=== PATIENT | female | born 1970 | race Two or more races ===

== ENCOUNTER 2024-07-04 19:13 | Emergency (ER) | payer MEDICAID, SELFPAY ==
[2024-07-04 19:58] VITALS: BP 136/76; PULSE 56; RESP 18; TEMP 36.7; O2SAT 98; BMI 50.3
--- NOTE | 2024-07-04 20:03 | XR_ITS ---
Examination: CT brain head without contrast. 2-D sagittal coronal reconstructions Date and time of exam:July 04, 2024 2128 hrs. Indications: Onset right-sided body numbness today CTDI: vol (mGy):49.1 DLP: (mGycm):896 Technique: Multiple CT axial sections of the brain have been obtained, 5 mm slice thickness. Contrast has not been administered. 2-D sagittal, coronal reconstructions have been obtained Low dose protocols were performed. One or more of the following dose reduction techniques were used; automated exposure control, adjustment of the mA and/or KV according to patient size, use of iterative reconstruction technique. Findings: No significant ventricular enlargement. 7 mm focus of calcification periphery of the right cerebellar hemisphere image 29 Intra-axial or extra-axial hemorrhage density is not seen. No mass effect or midline shift Basal cisterns are not remarkable. Fourth ventricle is midline. Cranial vault intact. Impression: Negative for acute hemorrhage, mass effect or midline shift As clinically warranted, brain MRI follow-up would best assess for demyelinating disease, acute ischemic change
--- NOTE | 2024-07-04 20:03 | XR_ITS ---
Examination: AP chest single view Technique: Upright AP chest single view Exam date and time: July 04, 20242022 hrs. Indications: Onset chest pain today. Findings: Mild enlargement cardiac contour Ectatic thoracic aorta. No pneumonia or pulmonary edema Impression: No pneumonia or pulmonary edema
--- NOTE | 2024-07-04 20:03 | EKG_ITS ---
[facility] Test Date: 2024-07-04 Pat Name: REILLY FULTON Department: Room: - Gender: Female Utility Engineer: : 1970 Requested By: Luis Reese Order Number: [id number] Reading MD: Luis Reese Measurements Intervals [place] Rate: 59 P: 40 IN: 181 QRS: -24 QRSD: 103 T: 24 QT: 332 QTc: 330 Interpretive Statements SINUS BRADYCARDIA WITH OCCASIONAL SUPRAVENTRICULAR PREMATURE COMPLEXES LOW QRS VOLTAGE IN PRECORDIAL LEADS [QRS DEFLECTION < 1.0 mV IN CHEST LEADS] VOLTAGE CRITERIA FOR LVH [MEETS CRITERIA IN ONE OF: R(aVL), S(V1), R(V5), R(V5/V6)+S(V1)] POSSIBLE ANTERIOR MYOCARDIAL INFARCTION , PROBABLY OLD [30 ms Q WAVE IN V3/V4, OR R < 0.2 mV IN V4] Compared to ECG 05/30/2020 12:22:24 Myocardial infarct finding now present /store/S0/[id number]/ecg/[id number].pdf
--- NOTE | 2024-07-04 20:05 | EDNOTE_ITS ---
<Statement entered by Adriane Jones MD - 07/15/24 17:38> As co-signing physician, I was present and available for consult prn. I concur with the plan and care as documented by the midlevel provider. ED General RME/HPI General Chief complaint: General Adult/Misc Complain Stated complaint: RIGHT SIDE BODY NUMBNESS Time Seen by Provider: 07/04/24 19:59 Arrival date/time: 07/04/24 19:13 RME / HPI RME / HPI narrative: 54-year-old female patient with significant history of hypertension, diabetes mellitus, came in for evaluation regarding right-sided numbness, started early this morning, associated with headache severity mild. Patient denies any slurring of speech denies any upper or lower extremity weakness patient is ambulatory. Denies any fever denies any other complaint except for right-sided chest discomfort also. Denies any cough no medications taken prior to arrival. Related Data Home Medications ?Medication ?Instructions ?Recorded ?Confirmed amiodarone 200 mg tablet 200 mg PO QDAY 04/07/20 07/07/20 aspirin 81 mg tablet,delayed 81 mg PO QDAY 04/07/20 07/06/20 release glimepiride 4 mg tablet 4 mg PO BID 04/07/20 07/06/20 metformin 1,000 mg tablet 1,000 mg PO BID 04/07/20 07/06/20 metoprolol tartrate 25 mg tablet 25 mg PO QDAY 04/07/20 07/07/20 pioglitazone 45 mg tablet 45 mg PO QDAY 05/30/20 07/06/20 Previous Rx's ?Medication ?Instructions ?Recorded docusate sodium 100 mg capsule 100 mg PO BID #60 caps 07/07/20 (Colace) hydrocodone 5 mg-acetaminophen 325 1 tab PO Q6H PRN pain (scale score 07/07/20 mg tablet 7-10) #20 tabs ibuprofen 600 mg tablet 600 mg PO Q8H PRN pain (scale 07/07/20 score 4-6) #14 tabs Allergies Allergy/AdvReac Type Severity Reaction Status Date / Time No Known Allergies Allergy Verified 07/04/24 19:17 Review of Systems Review of Systems Narrative Review of Systems: Review of system reviewed and within normal limits except mentioned in HPI ED Exam Narrative Physical exam: VITAL SIGNS: Reviewed. GENERAL APPEARANCE: Alert and interactive, follows commands, no acute distress, HEAD AND FACE: Non-traumatic. ENT: PERRL, pink conjunctivitis, eyelid no trauma, Mucous membrane moist. NECK: Supple, nontender, no nuchal rigidity. CHEST: No tenderness, no crepitus, no paradoxical movement, no retractions. LUNGS: Clear, well ventilated, symmetric, no rales, no wheezing, no ronchi, no stridor, good breath sounds bilaterally. HEART: Regular rate, regular rhythm, no murmur, no gallops. ABDOMEN: Soft, positive bowel sounds, nondistended, no guarding, nontender, no rebound, no masses, RECTAL: Deferred. GENITAL: Deferred. NEUROLOGICAL: Gross motor function intact sensory function intact, Appropriate for age. MUSCULOSKELETAL: low back nontender, full range of motion. EXTREMITIES: Nontender, full range of motion. SKIN: Color pink, dry, no rash, no lacerations, no abrasions, no contusions. LYMPHATICS: Deferred. Course Quality Measures none Orders Category Date Time Status EKG (ED ONLY) *Do not use* NOW Care 07/04/24 20:[address] head/brain wo con Stat Exams 07/04/24 20:03 Completed EKG (ED Only) Stat Exams 07/04/24 20:03 Draft XR chest 1V Stat Exams 07/04/24 20:03 Completed B-Type Natriuretic Peptide Stat Lab 07/04/24 20:20 Completed CBC Stat Lab 07/04/24 20:20 Completed Comprehensive Metabolic Panel Stat Lab 07/04/24 20:20 Completed Partial Thromboplastin Time Stat Lab 07/04/24 20:20 Completed Prothrombin Time with INR Stat Lab 07/04/24 20:20 Completed Troponin I Stat Lab 07/04/24 20:20 Completed Acetaminophen Tab [Tylenol ES Tab] Med 07/04/24 20:05 Discontinued 1,000 mg PO X1 ONE Vital Signs Vital signs: Vital Signs Temperature 98.0 F 07/04/24 19:58 Pulse Rate 56 L 07/04/24 19:58 Respiratory Rate 18 07/04/24 19:58 Blood Pressure 136/76 H 07/04/24 19:58 Pulse Oximetry (%) 98 07/04/24 19:58 Oxygen Delivery Method Room Air 07/04/24 19:58 [facility] Patient data External records reviewed:: None Clinical information provided by:: patient Social determinants that could affect healthcare access:: none Patient has the following chronic illnesses:: Diabetes hypertension How is presenting disease/condition affected by chronic disease/condition?: e xacerbated by Evaluation data The following diagnostics were reviewed and interpreted by me:: lab results, radiology exam(s) and EKG tracing(s) Lab and/or radiology exams considered but not ordered:: None Interpretation Summary: CT scan of the head came back unremarkable. I personally reviewed and interpreted the x-ray of this patient. There is no acute abnormalities found, no infiltrates no pneumothorax no hemothorax normal chest x-ray. Review of other structures was without significant abnormal findings also. I additionally reviewed the radiologist report and agree with the interpretation. Laboratory workup including troponin came back normal EKG showed sinus bradycardia, ventricular rate of 59 bpm, no ST segment elevation depression noted. Medications Medications considered but not ordered:: None Tylenol Medication administrations:: Medication Administration History Discontinued Medications Acetaminophen (Acetaminophen 500 Mg Tablet) 1,000 mg PO X1 ONE Stop: 07/04/24 20:06 Last Admin: 07/04/24 20:14 Dose: 1,000 mg Documented By: Tylenol Consultations Consultation(s) initiated? (list below): No Diagnosis Differential Diagnosis ED Complaint MDM: Paresthesia, headache, stroke Most likely diagnosis given after review of the tests above:: Paresthesia, headache Admission Indicated Admission indicated?: not indicated Explain why admission is indicated or not indicated:: Stable for discharge Admission Request Was there a request for admission?: No Disposition Plan Disposition Plan: Discharge Discharge Attestation Discharge Attestation: The patient and all family members were given an opportunity to ask questions and understood the discharge instructions. Discharge instructions specifically effects, indications for sooner follow up or return to the emergency department, and the expected course of current diagnosis. Patient condition: Stable Medical Decision Making MDM Narrative MDM Narrative: 54-year-old female patient with significant history of hypertension, diabetes mellitus, came in for evaluation regarding right-sided numbness, started early this morning, associated with headache severity mild. Patient denies any slurring of speech denies any upper or lower extremity weakness patient is ambulatory. Denies any fever denies any other complaint except for right-sided chest discomfort also. Denies any cough no medications taken prior to arrival. Patient's cardiac workup all came back normal. Troponin is normal chest x-ray came back unremarkable CT scan of the head also came back unremarkable. Prior to discharge patient told me that her headache is totally gone and her numbness is also gone. Differential Diagnosis Differential Diagnosis: Paresthesia, headache, stroke Lab Data 07/04/24 20:20 07/04/24 20:20 Labs: Lab Results 07/04/24 Range/Units 20:20 WBC 8.5 (3.6-11.0) Thou/mm3 RBC 4.47 (4.00-5.20) Miln/mm3 Hgb 12.9 (12.0-16.0) g/dL Hct 39.1 (36.0-46.0) % MCV 88 (80-100) fL MCH 28.9 (25.0-35.0) pg MCHC 33.0 (31.0-37.0) g/dl RDW Std Deviation 45.0 (36.4-46.3) fL Plt Count 245 (140-440) Thou/mm3 Neut % (Auto) 49 (37-80) % Lymph % (Auto) 40 (10-50) % Hinds % (Auto) 6 (0-12) % Eos % (Auto) 4 (0-10) % Baso % (Auto) 1 (0-2.5) % Neut # (Auto) 4.1 (1.8-7.7) Thou/mm3 Lymph # (Auto) 3.4 (1.0-4.8) Thou/mm3 Hinds # (Auto) 0.5 (0.0-0.8) Thou/mm3 Eos # (Auto) 0.3 (0.0-0.5) Thou/mm3 Baso # (Auto) 0.0 (0.0-0.2) Thou/mm3 Immature Gran # (Auto) 0.02 H (0.00-0.00) Thou/mm3 Absolute Nucleated RBC 0.00 (0.00-0.00) Thou/mm3 Immature Gran % 0 (0-0) % Nucleated RBC % 0 (0) /100 WBC PT 11.0 (9.0-12.2) Seconds INR 1.0 (0.9-1.3) APTT 27.0 (22.0-36.0) Seconds Sodium 142 (136-145) mMol/L Potassium 3.8 (3.4-5.1) mMol/L Chloride 106 (98-107) mMol/L Carbon Dioxide 26.9 (20.0-31.0) mMol/L Anion Gap 9 (7-16) BUN 21 (9-23) mg/dL Creatinine 1.3 (0.6-1.3) mg/dL Estim Creat Clear Calc 61.7 (>60) mL/min eGFR 49 L (60 - ) See Note BUN/Creatinine Ratio 16 (12-20) Ratio Glucose 131 H (74-106) mg/dL Calculated Osmolality 288 (275-295) Calcium 9.8 (8.3-10.6) mg/dL Corrected Calcium 9.8 (8.5-10.1) mg/dL Total Bilirubin 0.2 L (0.3-1.2) mg/dL AST 14 (0-34) U/L ALT 12 (10-49) U/L Alkaline Phosphatase 123 H (46-116) U/L Troponin I < 0.002 (0.0-0.045) ng/mL B-Natriuretic Peptide 21 (0-100) pg/mL Total Protein 7.3 (5.7-8.2) gm/dL Albumin 4.3 (3.5-5.0) gm/dL Globulin 3.0 (2.3-3.5) gm/dL Albumin/Globulin Ratio 1.4 (1.2-2.2) Discharge Plan Plan Patient Disposition: HOME (Self Care) Disposition Comment: stable Prescriptions/Referrals Prescriptions/Med Rec: No Action amiodarone 200 mg Tablet 200 mg PO QDAY aspirin 81 mg Tablet,Delayed Release (Dr/Ec) 81 mg PO QDAY Hold Instructions: Resume on 07/10/20. metformin 1,000 mg Tablet 1,000 mg PO BID glimepiride 4 mg Tablet 4 mg PO BID metoprolol tartrate 25 mg Tablet 25 mg PO QDAY pioglitazone 45 mg Tablet 45 mg PO QDAY hydrocodone-acetaminophen 5-325 mg tablet 1 tab PO Q6H MDD 4 PRN (Reason: pain (scale score 7-10)) Qty: 20 0RF docusate sodium [Colace] 100 mg capsule 100 mg PO BID Qty: 60 0RF ibuprofen 600 mg tablet 600 mg PO Q8H PRN (Reason: pain (scale score 4-6)) Qty: 14 0RF Referrals: No Primary/Family,Physician [Primary Care Provider] - In 1 week Problem List Clinical Impression: Headache, Paresthesia Patient/Caregiver Discharge Instructions Discharge Activity: activity as tolerated Education Materials: ED Paraesthesias Additional Instructions: Thank you for the opportunity for serving you today. You are stable for discharged . You are advised to: Follow-up with your PCP in 1 to 2 days Return to ED for worsening of symptoms Print Language: Egyptian Stand Alone Forms: Jacqueline Award Info., Patient Portal Info Letter PA/FACING BASTER Supervising Physician PA/FACING BASTER Supervising Physician: MD Karen
[2024-07-04] MEDS: ACETAMINOPHEN 500 MG TABLET 1000 MG PO (20:14)
[2024-07-04 21:12] LABS: Basophils % (Auto) 1 % (0-2.5); Eosinophils # (Auto) 0.3 Thou/mm3 (0.0-0.5); Eosinophils % (Auto) 4 % (0-10); Hematocrit 39.1 % (36.0-46.0); Hemoglobin 12.9 g/dL (12.0-16.0); Immature Granulocytes % (Auto) 0 % (0-0); Immature Granulocytes Auto 0.02 Thou/mm3 (0.00-0.00); Lymphocytes # (Auto) 3.4 Thou/mm3 (1.0-4.8); Lymphocytes % (Auto) 40 % (10-50); Mean Corpuscular Hemoglobin 28.9 pg (25.0-35.0); Mean Corpuscular Volume 88 fL (80-100); Monocytes # (Auto) 0.5 Thou/mm3 (0.0-0.8); Monocytes % (Auto) 6 % (0-12); Neutrophils # (Auto) 4.1 Thou/mm3 (1.8-7.7); Neutrophils % (Auto) 49 % (37-80); Nucleated Red Blood Cell % 0 /100 WBC (0); Platelet Count 245 Thou/mm3 (140-440); Red Blood Count 4.47 Miln/mm3 (4.00-5.20); White Blood Count 8.5 Thou/mm3 (3.6-11.0)
[2024-07-04 21:35] LABS: B-Type Natriuretic Peptide 21 pg/mL (0-100)
[2024-07-04 21:38] LABS: Alanine Aminotransferase 12 U/L (10-49); Albumin, Serum 4.3 gm/dL (3.5-5.0); Albumin/Globulin Ratio 1.4 (1.2-2.2); Alkaline Phosphatase 123 U/L (46-116); Anion Gap 9 (7-16); Aspartate Amino Transferase 14 U/L (0-34); BUN/Creatinine Ratio 16 Ratio (12-20); Bilirubin,Total 0.2 mg/dL (0.3-1.2); Blood Urea Nitrogen 21 mg/dL (9-23); Calcium 9.8 mg/dL (8.3-10.6); Calcium (Corrected) 9.8 mg/dL (8.5-10.1); Carbon Dioxide 26.9 mMol/L (20.0-31.0); Chloride 106 mMol/L (98-107); Creatinine (Component) 1.3 mg/dL (0.6-1.3); Estimated Creatinine Clearance 61.7 mL/min (>60); Glucose 131 mg/dL (74-106); Osmolality,Calculated 288 (275-295); Potassium 3.8 mMol/L (3.4-5.1); Sodium 142 mMol/L (136-145); Total Protein 7.3 gm/dL (5.7-8.2); Troponin I < 0.002 ng/mL (0.0-0.045); eGFR 49 See Note
[2024-07-04 23:41] VITALS: RESP 18
== END 2024-07-04 23:43 | disposition home or self-care (01) ==
PROVIDERS: Nurse Practitioner Family; Emergency Provider Emergency Medicine
DX: R20.2 Paresthesia of skin (principal); R51.9 Headache, unspecified; R07.89 Other chest pain; R20.0 Anesthesia of skin; R00.1 Bradycardia, unspecified; I49.1 Atrial premature depolarization; I10 Essential (primary) hypertension
CPT/HCPCS: 36415; 70450; 71045; 80053; 83880; 84484; 85025; 85610; 85730; 93005; 99284; A9270